=== PATIENT | male | born 1960 | race Caucasian/White ===

== ENCOUNTER 2016-09-27 02:41 | Emergency (ER) | payer OTHER ==
[~2016-09-27] VITALS: Ht 175.3 cm; Wt 70.0 kg
[2016-09-27 02:44] VITALS: BP 181/99; PULSE 97; RESP 18; TEMP 97.9; O2SAT 93
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
--- NOTE | 2016-09-27 03:49 | RADRPT ---
EXAM DATE/TIME: 09/27/2016 02:57 [facility] COMPARISON: No previous studies available for comparison. INDICATIONS : Pt fell earlier this evening. MEDICAL HISTORY : None. SURGICAL HISTORY : Tonsillectomy. Left shoulder ENCOUNTER: Initial ACUITY: 1 day PAIN SCORE: 7/10 LOCATION: Bilateral chest FINDINGS: A single view of the chest demonstrates the lungs to be symmetrically aerated without evidence of mas s, infiltrate or effusion. The cardiomediastinal contours are unremarkable. Osseous structures are intact. CONCLUSION: Normal examination. Raoul Ralph MD on September 27, 2016 at 3:48 Board Certified Radiologist. This report was verified electronically.
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
[2016-09-27 05:35] VITALS: BP 174/88
== END 2016-09-27 05:43 | disposition home or self-care (01) ==
LOC: NEPE 02:41
DX: S01.01XA Laceration without foreign body of scalp, initial encounter (principal); S09.90XA Unspecified injury of head, initial encounter; H91.90 Unspecified hearing loss, unspecified ear; F17.200 Nicotine dependence, unspecified, uncomplicated; W01.0XXA Fall on same level from slipping, tripping and stumbling without subsequent striking against object, initial encounter; W17.2XXA Fall into hole, initial encounter; Y92.832 Beach as the place of occurrence of the external cause
CPT/HCPCS: 12002; 70450; 71010; 72125

== ENCOUNTER 2016-11-06 18:32 | Emergency (ER) | payer OTHER ==
[~2016-11-06] VITALS: Ht 175.3 cm; Wt 70.0 kg
[2016-11-06 18:36] VITALS: BP 140/86; PULSE 116; RESP 18; O2SAT 96
[2016-11-06 18:48] VITALS: BP 140/86; PULSE 103; RESP 20; O2SAT 96
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
[2016-11-06] MEDS ORDERED: SODIUM CHLORIDE 0.9% FLUSH 10 ML FLUSH IV FLUSH PRN (19:15)
[2016-11-06] MEDS ORDERED: MORPHINE SULFATE 4 MG/ML INJ IV PUSH ONE ×2 (19:15→21:00)
[2016-11-06 19:26] VITALS: BP 140/87; PULSE 103; PULSE 108; RESP 18; RESP 20; O2SAT 95
[2016-11-06 19:29] LABS: AUTOMATED NEUTROPHIL # 6.9 TH/MM3 (1.8-7.7); BASOPHIL # 0.1 TH/MM3 (0-0.2); BASOPHIL % 0.6 % (0.0-2.0); EOSINOPHIL # 0.2 TH/MM3 (0-0.4); EOSINOPHIL % 2.3 % (0.0-4.0); HEMATOCRIT 37.2 % (39.0-51.0); LYMPH % 19.4 % (9.0-44.0); LYMPHOCYTE # 1.8 TH/MM3 (1.0-4.8); MEAN CELL VOLUME 99.2 FL (80.0-100.0); MEAN CORPUSCULAR HEMOGLOBIN 35.1 PG (27.0-34.0); MEAN CORPUSCULAR HGB CONC 35.4 % (32.0-36.0); MONO % 3.4 % (0.0-8.0); NEUT % 74.3 % (16.0-70.0); PLATELET COUNT 290 TH/MM3 (150-450); RED BLOOD COUNT 3.75 MIL/MM3 (4.50-5.90); RED CELL DISTRIBUTION WIDTH 13.7 % (11.6-17.2); WHITE BLOOD COUNT 9.3 TH/MM3 (4.0-11.0)
[2016-11-06 19:33] LABS: INTERNATIONAL NORMALIZED RATIO 0.9 RATIO; PROTHROMBIN TIME - PATIENT 10.4 SEC (9.8-11.6)
--- NOTE | 2016-11-06 19:36 | RADRPT ---
EXAM DATE/TIME: 11/06/2016 19:14 [facility] COMPARISON: HIP LEFT (AP&LAT 2/3VWS) W AP PELVIS, May 23, 2015, 3:02. INDICATIONS : Left hip pain, fell MEDICAL HISTORY : None. SURGICAL HISTORY : Tonsillectomy. Left hip pinning ENCOUNTER: Initial ACUITY: 1 day PAIN SCORE: 8/10 LOCATION: Left Hip FINDINGS: There is subsidence across the previously nailed femoral neck. This is probably nonunion now. Acute fracture is not appreciated. CONCLUSION: Findings as above. James Burton MD FACR on November 06, 2016 at 19:32 Board Certified Radiologist. This report was verified electronically.
--- NOTE | 2016-11-06 19:37 | RADRPT ---
EXAM DATE/TIME: 11/06/2016 19:18 [facility] COMPARISON: CHEST SINGLE AP, September 27, 2016, 2:57. INDICATIONS : Short of breath MEDICAL HISTORY : None. SURGICAL HISTORY : Tonsillectomy. Left hip pinning ENCOUNTER: Initial ACUITY: 1 day PAIN SCORE: 0/10 LOCATION: chest FINDINGS: A single view of the chest demonstrates the lungs to be symmetrically aerated without evidence of mas s, infiltrate or effusion. The cardiomediastinal contours are unremarkable. Degenerative changes ab out the left shoulder, previously repaired. CONCLUSION: No acute disease. James Burton MD FACR on November 06, 2016 at 19:35 Board Certified Radiologist. This report was verified electronically.
[2016-11-06 19:38] LABS: APTT (PATIENT) 28.6 SEC (24.3-30.1)
[2016-11-06 19:39] LABS: HEMO FLAGS AUTO DIFF
[2016-11-06 20:19] LABS: POTASSIUM 3.9 MEQ/L (3.5-5.1)
[2016-11-06 20:24] LABS: BANDS 15 % (0-6); EOSINOPHILS 3 % (0-4); METAMYELOCYTES 1 % (0-1); NEUTROPHIL # MANUAL DIFF 7.8 TH/MM3 (1.8-7.7); POLYS (SEG NEUTROPHILS) 68 % (16-70); WBC DIFF SAMPLE 100
[2016-11-06 20:26] LABS: PLATELET ESTIMATE SMEAR NORMAL (NORMAL); PLATELET MORPHOLOGY NORMAL (NORMAL); SCAN/DIFF FINAL DIFF MANUAL
--- NOTE | 2016-11-06 20:30 | RADRPT ---
EXAM DATE/TIME: 11/06/2016 20:13 [facility] COMPARISON: CT BRAIN W/O CONTRAST, September 27, 2016, 3:16. INDICATIONS : Trauma, fall. RADIATION DOSE: 61.39 CTDIvol (mGy) ; Tabletop CT Head MEDICAL HISTORY : None SURGICAL HISTORY : None. ENCOUNTER: Initial ACUITY: 1 day PAIN SCALE: 2/10 LOCATION: cranial TECHNIQUE: Multiple contiguous axial images were obtained of the head. Using automated exposure control and adj ustment of the mA and/or kV according to patient size, radiation dose was kept as low as reasonably a chievable to obtain optimal diagnostic quality images. DICOM format image data is available electro nically for review and comparison. FINDINGS: CEREBRUM: The ventricles are normal for age. No evidence of midline shift, mass lesion, hemorrhage or acute in farction. No extra-axial fluid collections are seen. POSTERIOR FOSSA: The cerebellum and brainstem are intact. The 4th ventricle is midline. The cerebellopontine angle i s unremarkable. EXTRACRANIAL: The visualized portion of the orbits is intact. SKULL: The calvaria is intact. No evidence of skull fracture. CONCLUSION: Negative for an acute process. James Burton MD FACR on November 06, 2016 at 20:28 Board Certified Radiologist. This report was verified electronically.
--- NOTE | 2016-11-06 20:38 | RADRPT ---
EXAM DATE/TIME: 11/06/2016 20:16 [facility] COMPARISON: No previous studies available for comparison. INDICATIONS : Trauma, fall. RADIATION DOSE: 7.34 CTDIvol (mGy) ; Patient positioning MEDICAL HISTORY : None SURGICAL HISTORY : None. ENCOUNTER: Initial ACUITY: 1 day PAIN SCALE: 8/10 LOCATION: Left hip TECHNIQUE: Volumetric scanning of the hip was performed. Using automated exposure control and adjustment of the mA and/or kV according to patient size, radiation dose was kept as low as reasonably achievable to o btain optimal diagnostic quality images. DICOM format image data is available electronically for rev iew and comparison. FINDINGS: There is previous nailing of the left hip with subsidence of the femoral neck with probable nonunion. The femoral head remains aligned with the acetabulum. Screws are within 6 mm of the acetabular hea d. Moderate degenerative changes are noted. There is some thinning of the acetabulum. No other fractures are appreciated. 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 James Burton MD FACR on November 06, 2016 at 20:35 Board Certified Radiologist. This report was verified electronically.
[2016-11-06] MEDS ORDERED: TETANUS/DIPHTHERIA TOXOID ADULT 0.5 ML VIAL IM ONE (21:00)
[2016-11-06] MEDS ORDERED: SODIUM CHLOR 0.9% 1000 ML INJ 1,000 ML IV ONE (21:00)
[2016-11-06 21:19] VITALS: BP 132/86; PULSE 89; RESP 17; O2SAT 98
== END 2016-11-07 03:18 | disposition home or self-care (01) ==
LOC: NEPC 18:32
DX: S70.02XA Contusion of left hip, initial encounter (principal); F10.129 Alcohol abuse with intoxication, unspecified; W01.0XXA Fall on same level from slipping, tripping and stumbling without subsequent striking against object, initial encounter; Y93.01 Activity, walking, marching and hiking; Y90.8 Blood alcohol level of 240 mg/100 ml or more; Z23 Encounter for immunization; Z72.0 Tobacco use
CPT/HCPCS: 70450; 71010; 73502; 73700; 80048; 80307; 85007; 85027; 85610; 85730; 90471; 90714; 96374; 96376; 99285; J2270; J7030